=== PATIENT | male | born 1990 | race African-American/Black ===

== ENCOUNTER 2017-04-11 17:19 | Emergency (ER) | payer SELFPAY ==
[~2017-04-11] VITALS: Ht 165.1 cm; Wt 65.6 kg
[2017-04-11 17:42] VITALS: BP 129/82
[2017-04-11] MEDS ORDERED: BACTRIM DS1 TAB PO (17:42)
== END 2017-04-11 17:45 | disposition home or self-care (01) | DRG 816 ==
LOC: ED 17:19
DX: R59.0 Localized enlarged lymph nodes (principal); F17.210 Nicotine dependence, cigarettes, uncomplicated

== ENCOUNTER 2017-05-16 15:44 | Emergency (ER) | payer SELFPAY ==
[~2017-05-16] VITALS: Ht 165.1 cm; Wt 60.0 kg
[~2017-05-16 15:44] MED LIST: BACTRIM DS1 TAB PO
[2017-05-16 18:24] LABS: HEMATOCRIT 46.3 % (39.0-50.0); HEMOGLOBIN 16.1 g/dl (14.0-18.0); IMMATURE GRANULOCYTES 0.4 % (0.0-1.0); MEAN CELL VOLUME 88.5 fL CALC (80.0-100.0); MEAN CORPUSCULAR HGB 30.8 pG CALC (26.0-32.0); MEAN CORPUSCULAR HGB CONC 34.8 g/L CALC (32.0-36.0); NEUT# 14.71 thou/uL (1.82-7.42); RED BLOOD COUNT 5.23 mill/uL (4.70-6.10); RED CELL DISTRI WIDTH 12.1 % (11.5-15.5)
[2017-05-16 18:32] LABS: INFLUENZA A NONE DETECTED (NONE DETECT); INFLUENZA B NONE DETECTED (NONE DETECT)
[2017-05-16 18:39] LABS: ALBUMIN 4.7 g/dL (3.2-5.0); ALKALINE PHOSPHATASE 112 u/l (38-126); ANION GAP 19 (6-22 (CALC)); BILIRUBIN, TOTAL 0.9 mg/dL (0.0-1.4); BUN 9 mg/dL (9-20); BUN/CREATININE RATIO 8 (12-20 (CALC)); CALCIUM 10.2 mg/dL (8.4-10.2); CARBON DIOXIDE 29 mmol/l (22-30); CHLORIDE 99 mmol/l (95-108); CREATININE 1.2 mg/dL (0.7-1.3); GFR > 60 ML/MIN (>=60 (CALC)); GFR FOR AFR.AMER. > 60 ML/MIN (>=60 (CALC)); GLUCOSE 100 mg/dL (75-110); POTASSIUM 4.1 mmol/l (3.5-5.1); SGOT/AST 32 u/l (17-59); SGPT/ALT 37 u/l (21-72); SODIUM 143 mmol/l (137-146); TOTAL PROTEIN 8.5 g/dL (6.3-8.2)
[2017-05-16 21:40] VITALS: BP 112/72
== END 2017-05-17 05:19 | disposition short-term general hospital (02) | DRG 204 ==
LOC: ED 15:44
PROVIDERS: Emergency Medicine
DX: R06.02 Shortness of breath (principal); R05 Cough; R50.9 Fever, unspecified

== ENCOUNTER 2017-09-01 22:17 | Emergency (ER) | payer SELFPAY ==
[~2017-09-01] VITALS: Ht 165.1 cm; Wt 63.6 kg
[2017-09-01 22:20] VITALS: BP 140/63
== END 2017-09-01 22:55 | disposition left against medical advice (07) | DRG 101 ==
LOC: ED 22:17 → LWOBS 22:55 → ED 22:55
DX: R56.9 Unspecified convulsions (principal); F19.90 Other psychoactive substance use, unspecified, uncomplicated; H61.21 Impacted cerumen, right ear; Z91.19 Patient's noncompliance with other medical treatment and regimen

== ENCOUNTER 2018-06-28 16:03 | Emergency (ER) | payer SELFPAY ==
[~2018-06-28] VITALS: Ht 165.1 cm; Wt 70.0 kg
[2018-06-28 17:46] VITALS: BP 115/73
[2018-06-28 17:50] LABS: URINE BILIRUBIN - DIPSTICK NEGATIVE (NEGATIVE); URINE BLOOD DIPSTICK NEGATIVE (NEGATIVE); URINE COLOR YELLOW; URINE GLUCOSE - DIPSTICK NEGATIVE (NEGATIVE); URINE KETONE NEGATIVE (NEGATIVE); URINE NITRITE - DIPSTICK NEGATIVE (Negative); URINE PH 5.5 (4.5-8.0); URINE PROTEIN - DIPSTICK TRACE mg/dL (NEG-TRACE); URINE UROBILINOGEN - DIPSTICK 0.2 E.U./dL (0.2)
[2018-06-28 17:51] LABS: URINE LEUK ESTERASE SMALL (NEGATIVE)
[2018-06-28 17:56] LABS: URINE RBC 25-50 RBC/hpf (0-5); URINE SPERM FEW hpf (NONE-RARE); URINE SQUAMOUS EPITHELIAL CELL FEW EPI/hpf (0-FEW)
== END 2018-06-28 17:54 | disposition home or self-care (01) | DRG 728 ==
LOC: ED 16:03
DX: A54.09 Other gonococcal infection of lower genitourinary tract (principal)

== ENCOUNTER 2018-09-10 15:20 | Emergency (ER) | payer SELFPAY ==
[~2018-09-10] VITALS: Ht 165.1 cm; Wt 70.0 kg
[2018-09-10 16:20] LABS: HEMATOCRIT 41.1 % (39.0-50.0); HEMOGLOBIN 13.8 g/dl (14.0-18.0); IMMATURE GRANULOCYTES 0.3 % (0.0-5.0); MEAN CELL VOLUME 90.9 fL CALC (80.0-100.0); MEAN CORPUSCULAR HGB 30.5 pG CALC (26.0-32.0); MEAN CORPUSCULAR HGB CONC 33.6 g/L CALC (32.0-36.0); NEUT# 5.61 thou/uL (1.82-7.42); RED BLOOD COUNT 4.52 mill/uL (4.70-6.10); RED CELL DISTRI WIDTH 13.1 % (11.5-15.5)
[2018-09-10 16:25] LABS: URINE BILIRUBIN - DIPSTICK NEGATIVE (NEGATIVE); URINE BLOOD DIPSTICK NEGATIVE (NEGATIVE); URINE COLOR YELLOW; URINE GLUCOSE - DIPSTICK NEGATIVE (NEGATIVE); URINE KETONE NEGATIVE (NEGATIVE); URINE LEUK ESTERASE NEGATIVE (Negative); URINE NITRITE - DIPSTICK NEGATIVE (Negative); URINE PH 7.5 (4.5-8.0); URINE PROTEIN - DIPSTICK NEGATIVE (NEG-TRACE)
[2018-09-10 16:26] LABS: URINE CLARITY CLOUDY
[2018-09-10 16:28] LABS: BARBITURATES NEGATIVE (NEGATIVE); COCAINE NEGATIVE (NEGATIVE); METHADONE NEGATIVE (NEGATIVE); OXCYCODONE NEGATIVE (NEGATIVE); TETRAHYDROCANNABIONOL POSITIVE (NEGATIVE); TRICYLIC ANTIDEPRESSANTS NEGATIVE (NEGATIVE)
[2018-09-10 16:46] LABS: ALBUMIN 4.8 g/dL (3.2-5.0); ALKALINE PHOSPHATASE 62 u/l (38-126); BILIRUBIN, TOTAL 0.8 mg/dL (0.0-1.4); BUN 9 mg/dL (9-20); BUN/CREATININE RATIO 9 (12-20 (CALC)); CHLORIDE 108 mmol/l (95-108); GFR > 60 ML/MIN (>=60 (CALC)); GFR FOR AFR.AMER. > 60 ML/MIN (>=60 (CALC)); POTASSIUM 4.1 mmol/l (3.5-5.1); SGOT/AST 28 u/l (17-59); SODIUM 141 mmol/l (137-146); TOTAL PROTEIN 7.8 g/dL (6.3-8.2)
[2018-09-10 16:47] LABS: ANION GAP 14 (6-22 (CALC)); CARBON DIOXIDE 23 mmol/l (22-30); ETHYL ALCOHOL 0 mg/dl (0-30)
[2018-09-10 16:50] VITALS: BP 124/82
[2018-09-10] MEDS ORDERED: CEPHALEXIN500 M1 PO (16:50)
[2018-09-10] MEDS ORDERED: MUPIROCIN21 TOP (16:52)
== END 2018-09-10 17:38 | DRG 880 ==
LOC: ED 15:20
DX: R45.851 Suicidal ideations (principal); L03.116 Cellulitis of left lower limb; S90.822A Blister (nonthermal), left foot, initial encounter; F17.210 Nicotine dependence, cigarettes, uncomplicated; X58.XXXA Exposure to other specified factors, initial encounter

== ENCOUNTER 2022-08-06 03:05 | Emergency (ER) | payer SELFPAY ==
[~2022-08-06] VITALS: Ht 165.1 cm; Wt 86.0 kg
[~2022-08-06 03:05] MED LIST changes: +CEPHALEXIN500 M1 PO; +MUPIROCIN21 TOP
[2022-08-06 03:12] VITALS: BP 129/85
[2022-08-06 03:31] VITALS: BP 129/85
== END 2022-08-06 03:31 | disposition left against medical advice (07) | DRG 728 ==
LOC: ED 03:05
DX: A64 Unspecified sexually transmitted disease (principal); F17.200 Nicotine dependence, unspecified, uncomplicated; Z53.29 Procedure and treatment not carried out because of patient's decision for other reasons

== ENCOUNTER 2024-01-08 12:14 | Emergency (ER) | payer SELFPAY ==
[~2024-01-08] VITALS: Ht 165.1 cm; Wt 68.0 kg
[2024-01-08 12:17] VITALS: BP 141/88
[2024-01-08 12:30] VITALS: BP 151/80
[2024-01-08] MEDS ORDERED: LACTATED RINGER'S 1,000 ML IV ONE (13:00)
[2024-01-08 13:01] VITALS: BP 125/82
[2024-01-08 13:19] LABS: BASO% 0.7 % (0-3); EOS% 1.5 % (0-8); HEMOGLOBIN 14.9 g/dl (14.0-18.0); IMMATURE GRANULOCYTES 0.1 % (0.0-5.0); LYMPH% 24.9 % (15-41); MEAN CELL VOLUME 90.3 fL CALC (80.0-100.0); MEAN CORPUSCULAR HGB 30.6 pG CALC (26.0-32.0); MEAN CORPUSCULAR HGB CONC 33.9 g/dL CAL (32.0-36.0); MONO% 14.7 % (2-13); NEUT# 6.22 thou/uL (1.82-7.42); NEUT% 58.1 % (42-76); RED BLOOD COUNT 4.87 mill/uL (4.70-6.10); RED CELL DISTRI WIDTH 12.2 % (11.5-15.5)
[2024-01-08 13:27] LABS: ALBUMIN 5.1 g/dL (3.2-5.0); CREATININE 1.3 mg/dL (0.7-1.3); TOTAL PROTEIN 8.7 g/dL (6.3-8.2)
[2024-01-08 13:30] VITALS: BP 135/93
[2024-01-08 13:33] LABS: BILIRUBIN, TOTAL 2.3 mg/dL (0.2-1.3); POTASSIUM 3.2 mmol/l (3.5-5.1)
[2024-01-08 14:21] VITALS: BP 135/93
== END 2024-01-08 14:15 | disposition left against medical advice (07) | DRG 948 ==
LOC: ED 12:14
PROVIDERS: Nurse Practitioner
DX: R53.1 Weakness (principal); R52 Pain, unspecified; I10 Essential (primary) hypertension; F17.200 Nicotine dependence, unspecified, uncomplicated; Z53.29 Procedure and treatment not carried out because of patient's decision for other reasons

== ENCOUNTER 2024-01-26 06:12 | Emergency (ER) | payer SELFPAY ==
[~2024-01-26] VITALS: Ht 170.2 cm; Wt 58.0 kg
[2024-01-26 06:20] VITALS: BP 118/82
[2024-01-26 06:30] VITALS: BP 113/76
[2024-01-26] MEDS ORDERED: HYDROCORTISONE2.5 % EX (06:43)
[2024-01-26] MEDS ORDERED: NEOSPORIN3.5 G1 TOP (06:43)
[2024-01-26 06:51] VITALS: BP 113/76
== END 2024-01-26 06:56 | disposition home or self-care (01) | DRG 914 ==
LOC: ED 06:12
DX: T14.8XXA Other injury of unspecified body region, initial encounter (principal); W57.XXXA Bitten or stung by nonvenomous insect and other nonvenomous arthropods, initial encounter